=== PATIENT | female | born 1950 | race Caucasian/White ===

== ENCOUNTER 2024-09-15 23:35 | Emergency (ER) | payer MEDICARE, BC, SELFPAY ==
[2024-09-15 23:35] VITALS: BP 138/59; PULSE 97; RESP 20; TEMP 36.5; O2SAT 98
[2024-09-15 23:38] VITALS: PULSE 92; O2SAT 97
[2024-09-15 23:39] VITALS: BP 138/59; PULSE 87; RESP 16; O2SAT 98
[2024-09-15 23:40] VITALS: PULSE 86; RESP 11; O2SAT 99
[2024-09-15 23:46] VITALS: BP 146/46; PULSE 87; RESP 17; O2SAT 97
[2024-09-15 23:50] VITALS: PULSE 83; PULSE 84; RESP 23; O2SAT 98
[2024-09-16] VITALS (21 sets, daily range): BP systolic 118–152; BP diastolic 35–66; PULSE 80–97; RESP 19–22; O2SAT 92–99
--- NOTE | 2024-09-16 00:20 | DI.CT_ITS ---
Exam(s) CT HEAD CERV SPINE FACIAL WO EXAM: CT HEAD CERV SPINE FACIAL WO CLINICAL HISTORY: fall frm standing, multiple facial lacs from glass. TECHNIQUE: Imaging Protocol: Axial computed tomography images with coronal and sagittal reformatted images were created and reviewed COMPARISON: No exams were available for comparison FINDINGS: CT BRAIN: There are no skull fractures but there are fractures of the bilateral nasal bones and adjacent anterior nasal septum. No evidence of orbital blowout fracture. There is a small amount of fluid in the right maxillary sinus. Other paranasal sinuses are clear, as are the mastoid air cells and there is no fluid in the middle ear cavities. There is no evidence of intracranial hemorrhage, mass effect, or shift of midline structures. There are no extra-axial fluid collections. The ventricles are not enlarged or shifted and there is no blood within the ventricular system nor within the basal cisterns. CT MAXILLOFACIAL BONES: There are mildly displaced fractures both nasal bones and nasal bridge and most anterior aspect of the nasal septum. There is a small amount of fluid in the dependent aspect of the right maxillary sinus. There does not appear to be in acute sinus fracture. Ostiomeatal units are patent bilaterally. Other paranasal sinuses are clear. Nasal septum is mildly deviated towards the right side. There is no evidence of orbital blowout fracture. Zygomatic arches are intact. Mandible is intact. CT CERVICAL SPINE: There is no evidence of fracture nor significant listhesis. No significant prevertebral soft tissue swelling. There is multilevel chronic disc space narrowing most prominent at C 5-6, 6 6-7 and C7-T1 levels. There is mild degenerative anterolisthesis of C6 upon C7. There is multilevel facet arthrop athy. No evidence of a facet joint malalignment. No osseous lesions. Some straightening of the cervical spine is noted. IMPRESSION: No acute intracranial findings on this noninfused CT scan of the brain. Bilateral nasal bone fractures. No evidence of orbital blowout fracture. Small amount of fluid in the dependent aspect of the right maxillary sinus which is probably more related to sinusitis than an actual fracture. No evidence of cervical spine fracture, malalignment, nor acute compromise of the cervical spinal canal. Multilevel degenerative disc disease of chronic nature and multilevel chronic facet arthropathy. No facet joint malalignment. Preliminary virtual Radiology report was reviewed. RADIATION DOSE DELIVERED: 1,671.53mGy.cm Total DLP 1,671.53mGy.cm Total DLP 1,671.53mGy.cm Total DLP DATA REPOSITORY: All CT scans at this facility are submitted to the National Radiology Data Registry (NRDR) Dose Index Registry (DIR) with the [employer] ([employer]). RADIATION OPTIMIZATION: All CT scans at this facility use at least one of these dose optimization techniques: automated exposure control; mA and/or kV adjustment per patient size (includes targeted exams where dose is matched to clinical indication); or iterative reconstruction.
[2024-09-16] MEDS: Tranexamic Acid 1,000 MG/10 ML VIAL 1000 MG (00:36)
[2024-09-16] MEDS: Lidocaine 1% Multi-Dose 50 ML VIAL (00:36)
[2024-09-16] MEDS: Lidocaine 2% Pres-Free W/EPI 1/200,000 20 ML VIAL (00:37)
--- NOTE | 2024-09-16 01:08 | DI.VRAD_ITS ---
PROCEDURE INFORMATION: Exam: CT Head Without Contrast Exam date and time: 09/16/2024 12:09 AM Age: 74 years old Clinical indication: Injury or trauma; Other: Fell face first into wine glass; Blunt trauma (contusions or hematomas) and laceration; Consciousness not specified; Without residual foreign body; Face and forehead; Cheek bone and forehead and maxilla; Right; Blunt trauma and laceration; Injury date: 09/16/24; Fall from standing, multiple facial lacs from glass TECHNIQUE: Imaging protocol: Computed tomography of the head without contrast. Radiation optimization: All CT scans at this facility use at least one of these dose optimization techniques: automated exposure control; mA and/or kV adjustment per patient size (includes targeted exams where dose is matched to clinical indication); or iterative reconstruction. COMPARISON: No relevant prior studies available. FINDINGS: Brain: Moderate generalized cerebral/cerebellar atrophy. The IACs are grossly normal. No extra-axial fluid collections. Mild prominence of the peripheral CSF spaces, related to generalized atrophy. No evidence of acute intracranial hemorrhage. Cerebral/cerebellar dickson-white matter differentiation is well maintained. No intracranial mass lesions. No midline shift or herniation. Cerebral ventricles: Moderate compensatory ventriculomegaly secondary to central atrophy. Pituitary gland and sella: The sella is grossly normal. Paranasal sinuses: Small volume fluid level in the right maxillary sinus and mucosal thickening in the anterior ethmoids and right frontal sinus suggesting sinusitis. Mastoid air cells: Visualized mastoid air cells are clear. Orbital cavities: No acute intraorbital findings. Bones: Acute mildly displaced comminuted fractures of the bilateral nasal bones. Chronic appearing cortical contour irregularity/discontinuity in the posterolateral right maxillary sinus with clean adjacent fat, favoring chronic changes of remote prior fracture. Soft tissues: Soft tissue swelling/air over the forehead and nasal bridge suggesting soft tissue contusion and laceration. Vasculature: No asymmetric vascular hyperdensities suggestive of thrombosis are identified. IMPRESSION: 1. No acute intracranial process. No intracranial hemorrhage or mass effect. 2. Soft tissue swelling/laceration over the forehead and nasal bridge. No radiopaque foreign body. 3. Comminuted mildly displaced fractures of the bilateral nasal bones. 4. Chronic appearing fracture of the right posterior maxillary sinus. PROCEDURE INFORMATION: Exam: CT Maxillofacial Without Contrast Exam date and time: 09/16/2024 12:09 AM Age: 74 years old Clinical indication: Injury or trauma; Other: Fell face first into wine glass; Blunt trauma (contusions or hematomas) and laceration; Consciousness not specified; Without residual foreign body; Face and forehead; Cheek bone and forehead and maxilla; Right; Blunt trauma and laceration; Injury date: 09/16/24; Fall from standing, multiple facial lacs from glass TECHNIQUE: Imaging protocol: Computed tomography of the face without contrast. Radiation optimization: All CT scans at this facility use at least one of these dose optimization techniques: automated exposure control; mA and/or kV adjustment per patient size (includes targeted exams where dose is matched to clinical indication); or iterative reconstruction. COMPARISON: No relevant prior studies available. FINDINGS: Brain: No acute intracranial findings. Cerebral/cerebellar atrophy commensurate with age. Paranasal sinuses: Mucosal thickening in the anterior ethmoids and right frontal sinus suggesting mild chronic sinusitis. Small volume fluid in the right maxillary sinus may represent reactive fluid from nasal bone fractures versus a mild element of acute sinusitis. Orbital cavities: No acute intraorbital findings. Mastoid air cells: The mastoid air cells are clear. Salivary glands: The parotid and submandibular glands are unremarkable. Pharynx: The parapharyngeal spaces are unremarkable. The nasopharynx is unremarkable. The oropharynx is unremarkable. The hypopharynx is unremarkable. Larynx: Normal epiglottis. Visualized larynx is unremarkable. Lymph nodes: No adenopathy. Bones: Acute bilateral mildly displaced moderately comminuted nasal bone fractures. Suspected acute fracture of the anterior bony nasal septum with 1.5 mm leftward displacement of the anterior fragment. No other acute facial fractures are identified. Chronic appearing fracture involving the posterolateral wall of the right maxillary sinus, with smooth/rounded well corticated margins and fairly clean adjacent fat. TMJs are well aligned. The infratemporal fossae and housekeeper/custodian/laundry worker spaces are unremarkable. Soft tissues: Soft tissue swelling/laceration over the forehead and upper nasal bridge. Additional moderate soft tissue swelling and superficial laceration in the right lateral face with 9 mm subcutaneous hematoma. No foreign bodies are identified. IMPRESSION: 1. Moderately comminuted mildly displaced bilateral nasal bone fractures and nearby mildly displaced fracture of the anterior bony nasal septum. 2. Soft tissue swelling/laceration over the forehead and nasal bridge and additional soft tissue swelling/laceration in the right lateral facial distribution. 3. Chronic appearing fracture in the posterolateral wall of the right maxillary sinus. 4. Mild sinusitis. PROCEDURE INFORMATION: Exam: CT Cervical Spine Without Contrast Exam date and time: 09/16/2024 12:09 AM Age: 74 years old Clinical indication: Injury or trauma; Other: Fell face first into wine glass; Blunt trauma (contusions or hematomas) and laceration; Consciousness not specified; Without residual foreign body; Face and forehead; Cheek bone and forehead and maxilla; Right; Blunt trauma and laceration; Injury date: 09/16/24; Fall from standing, multiple facial lacs from glass TECHNIQUE: Imaging protocol: Computed tomography of the cervical spine without contrast. Radiation optimization: All CT scans at this facility use at least one of these dose optimization techniques: automated exposure control; mA and/or kV adjustment per patient size (includes targeted exams where dose is matched to clinical indication); or iterative reconstruction. COMPARISON: No relevant prior studies available. FINDINGS: Bones: Craniocervical alignment is normal. The occipital condyles are intact. The odontoid is intact. Moderate osteoarthritic sclerosis and spurring at the atlantodens interval. No jumped or perched facets. Moderate osteoarthritic facet hypertrophy on the right at C2-C3 and on the left at C4-C5. Bilateral facet ankylosis C6-C7. No fractures. Reversal of cervical lordosis may be positional or osteoarthritic in nature, versus changes of muscular strain/spasm. 2.5 mm osteoarthritic anterolisthesis C6-C7. No blastic or lytic lesions. Moderate-severe osteoarthritic disc space narrowing with mild-moderate marginal spurring C5-C6, C6-C7, and C7-T1. No significant canal stenosis. There is left foraminal stenosis which is mild at C3-C4, moderate-severe C4-C5, C5-C6, and C6-C7, and mild-moderate at C7-T1. There is right foraminal stenosis which is mild at C2-C3, severe at C3-C4, mild at C5-C6, and moderate at C7-T1. Lungs: Visualized pulmonary apices are clear. Thyroid: The visualized thyroid gland is unremarkable. Vasculature: Moderate atherosclerotic calcific plaque in the carotid bulbs. Soft tissues: No acute soft tissue abnormalities. IMPRESSION: 1. No evidence of acute fracture or traumatic subluxation. 2. Reversal of cervical lordosis may be positional or osteoarthritic in nature, versus changes of muscular strain/spasm. 3. Osteopenia and osteoarthritic changes with bilateral foraminal stenoses detailed above. Dictated and Authenticated by: Pablo Arauz MD. Orderin Amadeo Eller MD
--- NOTE | 2024-09-16 01:52 | W.ED.GENAD ---
Discharge Plan Disposition Patient Disposition: Home Condition: Good Discharge Details Clinical Impression: Face lacerations, Finger laceration, Fall, Fracture of nasal bones, Fracture of nasal septum Primary Care Provider: Carol Jarrett ED Provider: Daphnie Childs Home Meds and New Rx's Prescriptions: Continued calcium carbonate-vitamin D3 1 EACH tablet 1 ea PO DAILY aspirin [Tony Low Dose Aspirin] 81 MG tablet,delayed release (DR/EC) 81 mg PO DAILY simvastatin 20 MG tablet 20 mg PO DAILY multivitamin 1 EACH capsule 1 ea PO DAILY magnesium oxide 250 MG tablet 250 mg PO DAILY escitalopram oxalate 10 MG tablet 10 mg PO DAILY omeprazole magnesium [Prilosec OTC] 20 MG tablet,delayed release (DR/EC) 20 mg PO DAILY Fish Oil 1 EACH capsule 1 ea PO DAILY vitamin E (dl, acetate) 400 UNIT capsule 400 unit PO DAILY Vitamin D3 Complete 1 EACH tablet 1 ea PO DAILY Discharge Instructions Instructions: Laceration Repair With Stitches ED, Nose Fracture ED Additional Instructions: Stitches out in 7-10 days- can happen at your primary, urgent care, or here in the ED. Apply Bacitracin or another over the counter antibiotic ointment to your wounds once a day. Keep the dressing on your nose in place until you see ENT on Wednesday. Do not get the area wet. You have nasal fractures. Please follow the following instructions: -Do not blow your nose! -Avoid sneezing. If you do sneeze, sneeze with your mouth open?do NOT block the sneeze by pinching your nose. -Avoid swimming, blowing up balloons, or blowing into anything. Do not use a straw. -Sleep with your head slightly raised. -Avoid bending over?try to keep your head above the level of your heart -Do not strain by pushing or lifting heavy objects. You will need to followup with ENT in the office on Wednesday. They will call you to schedule an appointment. If you do not hear from them early wednesday morning, please call [phone]. Return to the emergency department for new or worsening symptoms including worsening pain, thick green/white discharge from your cuts, redness around your cuts, fever, inability to breathe through your nose, or if you have any other concerns. HPI General Mode of arrival: EMS. Date/Time Provider Initiated Documentation: 09/15/24 23:43. Limitations to Documentation: no limitations. Information obtained by: patient, family and EMS. HPI Narrative: 74yo F with hx gait unsteadiness, frequent falls, presenting with facial lacerations after a fall from standing. Was in the kitchen cleaning up when she lost her balance and fell forward; this is typical of her usual falls. Was holding wine glasses at the time; these broke and she she had multiple facial lacerations. No LOC. No lightheadedness or presyncope. No chest pain or shortness of breath at any point. Mild facial pain; denies pain elsewhere. No headache, nausea, vomiting, vision changes, neck pain, numbness, tingling, or weakness. Was in her usual state of health prior to this event. Related Data Home Medications ?Medication ?Instructions ?Recorded ?Confirmed Tony Low Dose Aspirin 81 mg 81 mg PO DAILY 03/08/17 09/15/24 tablet,delayed release (aspirin) Fish Oil 340 mg-1,000 mg capsule 1 ea PO DAILY 03/08/17 09/15/24 (omega-3 fatty acids-fish oil) Prilosec OTC 20 mg tablet,delayed 20 mg PO DAILY 03/08/17 09/15/24 release (omeprazole magnesium) Vitamin D3 Complete 18 mg iron-800 1 ea PO DAILY 03/08/17 09/15/24 mcg-150 mg tablet ([id number] cmplx#[id number]) calcium 600 mg (as 1 ea PO DAILY 03/08/17 09/15/24 carbonate)-vitamin D3 5 mcg (200 unit) tablet escitalopram oxalate 10 mg tablet 10 mg PO DAILY 03/08/17 09/15/24 magnesium oxide 250 mg PO DAILY 03/08/17 09/15/24 multivitamin 1 ea PO DAILY 03/08/17 09/15/24 simvastatin 20 mg tablet 20 mg PO DAILY 03/08/17 09/15/24 vitamin E (dl, acetate) 180 mg 400 unit PO DAILY 03/08/17 09/15/24 (400 unit) capsule Allergies Allergy/AdvReac Type Severity Reaction Status Date / Time nitrofurantoin Allergy Unknown Verified 09/15/24 23:42 macrocrystalline (From Macrodantin) General Stated Complaint: Laceration MARIA DEL CARMEN: 3 Review of Systems Narrative: see HPI Exam Narrative Exam Narrative: GENERAL: Alert, no acute distress. SKIN: Warm and well perfused. Multiple facial lacerations and single finger laceration as described in MDM. FACE: Full symmetric movement of all facial muscles. Sensation to light tough intact and symmetric throughout face. EYES: PERRL. No scleral icterus or conjunctival injection. Extraocular muscles intact without nystagmus or diplopia. No proptosis or enophthalmos. EARS: Normal appearing pinnae. No hemotympanum. NOSE: Tender. No discharge. No nasal septal hematoma. MOUTH: No malocclusion or trismus. Moist mucus membranes without blood. Posterior pharynx without erythema or exudate. NECK: Trachea midline. No discolorations or edema. CV: Regular rate and rhythm, Normal s1 and s2. No murmurs, rubs, or gallops. PV: Radial pulses 2+ bilaterally and symmetric. Dorsalis pedis pulses 2+ bilaterally and symmetric. 2+ capillary refill. No extremity edema. CHEST: No abrasions or ecchymosis. Chest symmetric with respirations. No chest wall tenderness. Lungs are clear to auscultation bilaterally. ABDOMEN: No ecchymosis or abrasions. Soft, nondistended, nontender. BACK: No abrasions, skin openings, or ecchymosis. Spine without bony tenderness, no step offs. PELVIC: Pelvis stable, nontender to lateral compression EXTREMITIES: No gross deformities . Tolerates full range of motion of extremities without tenderness. Sensation, ROM/strength, and capillary refill intact all digits of right hand. Neuro: ? GCS 15.? PERRL.? EOMI.? Fluent speech, no dysarthria. Motor- 5/5 strength symmetric bilateral upper and lower extremities Sensation- ?Intact to light touch and symmetric multiple dermatomes including upper and lower extremities Coordination- No dysmetria on finger to nose Reflexes- 1/4 achilles & patellar, no clonus Gait/station: ?Normal stance.? No truncal ataxia. Steady gait, slow CRANIAL NERVES: II: Pupils equal and reactive, III, IV, : EOM intact, no gaze preference or deviation, no nystagmus. V: normal sensation in V1, V2, and V3 segments bilaterally VII: no asymmetry, no nasolabial fold flattening VIII: normal hearing to speech IX, X: normal palatal elevation, no uvular deviation XI: 5/5 head turn and 5/5 shoulder shrug bilaterally XII: midline tongue protrusion Course Vital Signs Vital signs: Vital Signs Temperature 36.5 C 09/15/24 23:35 Pulse 97 H 09/15/24 23:35 Respiratory Rate 20 09/15/24 23:35 Blood Pressure 138/59 L 09/15/24 23:35 Pulse Oximetry 98 09/15/24 23:35 Temperature 36.5 C 09/15/24 23:35 Pulse 85 09/16/24 00:46 Pulse 97 H 09/16/24 00:01 Respiratory Rate 19 09/16/24 00:01 Blood Pressure 121/66 09/16/24 00:46 Blood Pressure Mean 86 09/16/24 00:46 Pulse Oximetry 99 09/16/24 00:20 Pain Level 0 09/15/24 23:35 Procedure Laceration Laceration 1: Date of Procedure: 09/16/24 Time of procedure: 01:30 Standard Time Out Performed: Yes Patient Consented: Verbally Site: face Side (If applicable): right (spiritism) Description: linear Depth: simple, single layer Pre-repair:: wound explored, irrigated extensively and deep structures intact Skin layer closed with: other (glue) Laceration 2: Date of Procedure: 09/16/24 Time of procedure: 01:30 Standard Time Out Performed: Yes Patient Consented: Verbally Site: face Side (If applicable): right (cheek) Description: linear Local anesthetic: Lidocaine 2% and with Epi Amount of anesthesia used (mL): 3 Pre-repair:: wound explored and irrigated extensively Skin layer closed with: nylon Suture size: 6-0 Number of sutures:: 17 Technique: running Subcutaneous layer closed with: vicryl Suture size: 5-0 Number of sutures:: 4 Technique:: simple, interrupted Laceration 3: Date of Procedure: 09/16/24 Time of procedure: 01:30 Standard Time Out Performed: Yes Patient Consented: Verbally Site: hand Side (If applicable): right (tip of 3rd digit) Description: linear Depth: simple, single layer Local anesthetic: Lidocaine 1% Amount of anesthesia used (mL): 1 Pre-repair:: wound explored and irrigated extensively Skin layer closed with: nylon Suture size: 6-0 Number of sutures:: 11 Technique: simple, interrupted Laceration 4: Date of Procedure: 09/16/24 Time of procedure: 01:30 Standard Time Out Performed: Yes Patient Consented: Verbally Site: face (forhead) Description: linear Depth: simple, single layer and involves muscle layer Local anesthetic: Lidocaine 2% and with Epi Amount of anesthesia used (mL): 4 Pre-repair:: wound explored and irrigated extensively Skin layer closed with: nylon Suture size: 6-0 Number of sutures:: 14 Technique: running and other (+ 1 simple interrupted) Muscle layer closed with: vicryl Suture Size: 5-0 Number of sutures:: 4 Technique: simple, interrupted Laceration 5: Date of Procedure: 09/16/24 Time of procedure: 03:30 Standard Time Out Performed: Yes Patient Consented: Verbally Site: face Side (If applicable): right (cheek) Description: flap and irregular Depth: simple, single layer Local anesthetic: Lidocaine 2% and with Epi Amount of anesthesia used (mL): 2 Pre-repair:: wound explored, irrigated extensively and deep structures intact Skin layer closed with: nylon Suture size: 6-0 Number of sutures:: 14 Technique: simple, interrupted Medical Decision Making 74yo F with hx gait unsteadiness, frequent falls, presenting with facial lacerations after a fall from standing. No LOC. On baby aspirin, no other blood thinners. No symptoms to suggest anything other than mechanical fall similar to her prior falls. Vital signs reassuring on arrival- slightly tachycardiac at 97 on EMS arrival which improved to 80's without intervention. Trauma exam significant for multiple lacerations as described below, otherwise normal and normal neurologic exam. C-spine clinically cleared. Patient ambulated in department without lightheadedness or unsteadiness. History does not suggest hemodynamically significant blood loss and patient is not on blood thinners; will not get labs. Facial sensation and movement fully intact on exam. CT head/face/c-spine obtained. Given extent of lacerations, high level of concern for retained glass especially in forehead laceration which extend caudally under intact skin. All lacerations thoroughly explored with no foreign bodies/glass identified and patient with no sharp sensations with firm palpation of areas underneath and surrounding lacerations including entirety of forehead. -3x3.1.5cm irregular flap near right eye/nose, measured as extending to 10mm from medial canthus. Actively bleeding. Pulsatile focus found and vessel tied off with figure 8 stitch 5.0 vicyrl, subsequently hemostatic. -[id number] triangular defect in skin of right lateral nose, slight oozing, not amenable to closure -5cm linear laceration to right cheek into SQ tissue, no muscle involvement, hemostatic Repaired with 4 deep sutures and skin closed with running sutures. -6cm linear laceration to forehead extending just into muscle layer, hemostatic. Repaired with 4 deep sutures and skin closed with running sutures with one simple interrupted stitch. -1.5cm laceration to tip of right 3rd digit, homeostatic. No involvement of nail or nail bed. Repaired with simple interrupted sutures. -0.5cm linear laceration to right chin, shallow, hemostatic (repaired with glue) -2mm flap just below right eye, shallow, hemostatic (repaired with glue) -3mm very shallow hemostatic laceration on right eyelid not involving lig margin (elected not to repair) CTs independently reviewed, no intracranial hemmoraghe, significantly displaced facial fractures, clear foreign bodies in soft tissues, or displaced cervical fractures presenting on my view; radiology reads below with bilateral nasal fractures and septal fracture and no radioopaque foreign bodies identified. No nasal septal hematoma on exam. Given large defect not amenable to closure as well as flap which is near medial canthus, consulted [facility]; spoke with Dr. Valentino on for face who reviewed images of lacerations and discussed with attending physician. After discussion with attending, patient not thought to need urgent/emergent specialist evaluation or transfer at this time, okay for ED closure with wet dressing on defect and followup in clinic on Wednesday. Standard nasal precautions. Flap repaired with simple interrupted sutures. Post-closure images were sent and also reviewed by Dr. Valentino; plan remains ENT followup on Wednesday. On reassessment she continues to have reassuring vital signs and ambulates steadily without any lightheadedness. Discharged home; discharge instructions and return precautions were reviewed with family at bedside who verbalized understanding. All questions were answered and she is in full agreement with the plan. Imaging Data Radiologic Study: Imaging: CT Scan Radiologist's impression: HEAD IMPRESSION: 1. No acute intracranial process. No intracranial hemorrhage or mass effect. 2. Soft tissue swelling/laceration over the forehead and nasal bridge. No radiopaque foreign body. 3. Comminuted mildly displaced fractures of the bilateral nasal bones. 4. Chronic appearing fracture of the right posterior maxillary sinus. FACE IMPRESSION: 1. Moderately comminuted mildly displaced bilateral nasal bone fractures and nearby mildly displaced fracture of the anterior bony nasal septum. 2. Soft tissue swelling/laceration over the forehead and nasal bridge and additional soft tissue swelling/laceration in the right lateral facial distribution. 3. Chronic appearing fracture in the posterolateral wall of the right maxillary sinus. 4. Mild sinusitis. CT SPINE IMPRESSION: 1. No evidence of acute fracture or traumatic subluxation. 2. Reversal of cervical lordosis may be positional or osteoarthritic in nature, versus changes of muscular strain/spasm. 3. Osteopenia and osteoarthritic changes with bilateral foraminal stenoses detailed above. PFSH All Active Problems (Updated 09/16/24 @ 05:21 by Daphnie Childs MD) Fracture of nasal septum (Acute) Fracture of nasal bones (Acute) Fall (Acute) Finger laceration (Acute) Face lacerations (Acute) Medical History (Updated 09/16/24 @ 05:21 by Daphnie Childs MD) Hyperlipidemia Dyspepsia Depression Glucose intolerance (impaired glucose tolerance) Surgical History (Updated 05/05/17 @ 10:38 by Paulette Nelson) EGD - MAC (04/15/17) Family History Mother Colon cancer Father Dementia Grandfather IA (myocardial infarction) Grandmother Dementia Maternal Aunt Dementia Social History Smoking/Tobacco Use Status: Never Smoking risk assessment performed?: Yes Alcohol Intake: current Alcohol Intake frequency: a few times a month Substance use type: does not use
[2024-09-16] MEDS: Tetanus & Diphtheria Tox,ADULT 0.5 ML VIAL IM (06:04)
== END 2024-09-16 06:24 | disposition home or self-care (01) ==
PROVIDERS: Emergency Provider Student in an Organized Health Care Education/Training Program; PCP Nurse Practitioner
DX: S02.2XXA Fracture of nasal bones, initial encounter for closed fracture (principal); S01.81XA Laceration without foreign body of other part of head, initial encounter; S01.411A Laceration without foreign body of right cheek and temporomandibular area, initial encounter; S61.212A Laceration without foreign body of right middle finger without damage to nail, initial encounter; E78.5 Hyperlipidemia, unspecified; Z79.82 Long term (current) use of aspirin; Z23 Encounter for immunization; W01.110A Fall on same level from slipping, tripping and stumbling with subsequent striking against sharp glass, initial encounter; Y93.G1 Activity, food preparation and clean up; Y92.010 Kitchen of single-family (private) house as the place of occurrence of the external cause
CPT/HCPCS: 12016; 90471; 90714; 99284; 70450; 70486; 72125; J2003; J2004